=== PATIENT | female | born 2000 | race Caucasian/White ===

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

== ENCOUNTER 2024-02-07 18:27 | Emergency (ER) | payer OTHER ==
[2024-02-07 18:37] VITALS: BP 133/47; PULSE 89; RESP 18; TEMP 97.7; BMI 46.7
[2024-02-07] MEDS ORDERED: ACETAMINOPHEN 500 MG TABLET (FP) ONE (20:56)
[2024-02-07] MEDS ORDERED: IBUPROFEN 600 MG TABLET (FP) PO ONE (20:56)
[2024-02-07] MEDS: ACETAMINOPHEN 500 MG TABLET (FP) PO ONE (21:00)
[2024-02-07] MEDS: IBUPROFEN 600 MG TABLET (FP) PO ONE (21:00)
== END 2024-02-07 21:01 | disposition home or self-care (01) ==
LOC: JER 18:27 → JERFT 18:27
DX: M25.561 Pain in right knee (principal); M25.461 Effusion, right knee; M79.89 Other specified soft tissue disorders; W18.40XA Slipping, tripping and stumbling without falling, unspecified, initial encounter
CPT/HCPCS: 73562-TC-RT-FY; 93971-TC; 99284-25

== ENCOUNTER 2024-05-30 22:41 | Emergency (ER) | payer OTHER ==
[2024-05-30 22:54] VITALS: BP 152/80; PULSE 101; RESP 18; TEMP 98.8; BMI 48.4
[2024-05-30] MEDS ORDERED: KETOROLAC TROMETHAMINE 30 MG/1 ML VIAL ONE (23:41)
[2024-05-30] MEDS: KETOROLAC TROMETHAMINE 30 MG/1 ML VIAL IM ONE (23:44)
== END 2024-05-31 00:45 | disposition home or self-care (01) ==
LOC: JER 22:41
PROC: 3E0133Z Introduction of Anti-inflammatory into Subcutaneous Tissue, Percutaneous Approach (ICD-10-PCS; principal; 2024-05-30)
DX: M25.561 Pain in right knee (principal); M25.562 Pain in left knee; V03.00XA Pedestrian on foot injured in collision with car, pick-up truck or van in nontraffic accident, initial encounter; Y93.01 Activity, walking, marching and hiking
CPT/HCPCS: 73564-TC-LT-FY; 73564-TC-RT-FY; 99284-25